=== PATIENT | male | born 1935 | race Caucasian/White ===

== ENCOUNTER 2018-09-23 11:17 | Day surgery (SDC) | payer OTHER ==
[2018-09-23] VITALS (11 sets, daily range): BP systolic 110–137; BP diastolic 40–91; PULSE 49–109; TEMP 97.5–97.8
[~2018-09-23] VITALS: Ht 177.8 cm; Wt 78.3 kg
[~2018-09-23 11:17] MED LIST: ASPIRIN 81M81 MG/TA2 PO; DAILY VITAMIN1 TAB PO; EFFIENT5 MG PO; ELIQUIS 5MG PO; FLOMAX 0.40.4 MG/CAP PO; FUROSEMIDE; LAMISIL1% TOP; LASIX 20MG TABL20 MG PO; LORTAB 5/500 501 TAB PO; MAG-OX 400400 MG/TAB PO; METROLOTION 5959 ML TOP; NATURAL MAGNES200 MG PO; NORCO 325 MG-51 TAB PO; OMEGA-3 FISH1200 MG PO; PRINIVIL10 MG PO; QUALAQUIN324 MG PO; RITE AID BIO2500 MCG PO; SIMVASTATIN5 MG PO; VITAMIN B121000 MC2 SL; VITAMINC1000TA PO; ZOCOR 20MG20 MG PO
[2018-09-24 04:52] VITALS: BP 101/58; PULSE 77; TEMP 97.4
[2018-09-24 07:45] VITALS: BP 108/47; PULSE 105; TEMP 98
[2018-09-24 11:58] VITALS: BP 120/55; PULSE 63; TEMP 98
[2018-09-24 15:24] VITALS: BP 138/63; PULSE 71; TEMP 98.2
[2018-09-24 15:54] VITALS: BP 145/77; PULSE 89; TEMP 97.5
[2018-09-24 19:22] VITALS: BP 110/45; PULSE 63; TEMP 97.3
[2018-09-25 04:02] VITALS: BP 120/47; PULSE 61; TEMP 98.5
[2018-09-25 07:30] VITALS: BP 120/54; PULSE 65; TEMP 97.5
== END 2018-09-25 08:50 | disposition home or self-care (01) ==
LOC: SDCO 11:17 → SURG 17:00 → SDCO 09-25 08:50
DX: N40.1 Benign prostatic hyperplasia with lower urinary tract symptoms (principal); R33.9 Retention of urine, unspecified; N13.8 Other obstructive and reflux uropathy; Q61.01 Congenital single renal cyst; I11.0 Hypertensive heart disease with heart failure; I50.9 Heart failure, unspecified; I08.3 Combined rheumatic disorders of mitral, aortic and tricuspid valves; I48.91 Unspecified atrial fibrillation; Z79.01 Long term (current) use of anticoagulants; Z79.82 Long term (current) use of aspirin; Z79.899 Other long term (current) drug therapy; Z87.891 Personal history of nicotine dependence; Z80.0 Family history of malignant neoplasm of digestive organs; Z82.49 Family history of ischemic heart disease and other diseases of the circulatory system; Z95.1 Presence of aortocoronary bypass graft; Z95.0 Presence of cardiac pacemaker
CPT/HCPCS: OP; J0690; J1100; J2405; J2704; J3010; J3480; J7120